=== PATIENT | male | born 2000 | race Caucasian/White ===

== ENCOUNTER 2019-08-22 20:57 | Emergency (ER) | payer SELFPAY ==
[~2019-08-22] VITALS: Ht 180.3 cm; Wt 63.0 kg
[2019-08-22 21:10] VITALS: BP 128/79
[2019-08-22] MEDS ORDERED: KETOROLAC 30 MG/ML VIAL IM ONE (22:05)
[2019-08-22 22:25] VITALS: BP 130/82
== END 2019-08-22 22:26 | disposition home or self-care (01) ==
LOC: MED 20:57
DX: B34.9 Viral infection, unspecified (principal); R19.7 Diarrhea, unspecified
CPT/HCPCS: 71045; 87804; 96372; 99284; J1885